=== PATIENT | male | born 1970 | race Caucasian/White ===

== ENCOUNTER 2022-03-24 11:44 | Emergency (ER) | payer OTHER, SELFPAY ==
[2022-03-24 11:58] VITALS: BP 166/104; PULSE 78; RESP 17; TEMP 36.6; O2SAT 99; BMI 32.5
--- NOTE | 2022-03-24 12:01 | DI.RAD.S_ITS ---
PROCEDURE: XR SHOULDER RT MIN 2V INDICATIONS: INJURY TO SHOULDER June TECHNIQUE: 3 views of the shoulder were acquired. COMPARISON: None. FINDINGS: Bones: No fractures or dislocations. No suspicious bony lesions. Visualized ribs appear intact. Soft tissues: No suspicious soft tissue calcifications. IMPRESSION: No definite radiographic abnormality. If pain persists with conservative management consider cross-sectional imaging with MRI or CT. Dictated by: True Spring M.D. on 03/24/2022 at 12:45 Approved by: True Spring M.D. on 03/24/2022 at 12:46
--- NOTE | 2022-03-24 14:03 | PC.NURSE ---
Pt states he went to catch a falling 300 lb motor in June and injured his R neck and shoulder. His neck improved some but is still having pain to the R shoulder and arm. 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
[2022-03-24 14:20] VITALS: BP 166/90; PULSE 77; RESP 16; O2SAT 99
--- NOTE | 2022-03-24 16:00 | ED.UPPEXIN ---
HPI - Extremity Injury (Upper) <SONAM Douglas - Last Filed: 03/24/22 16:08> General Chief Complaint: Extremity Injury, Upper Stated Complaint: Strained right shoulder at work Time Seen by Provider: 03/24/22 13:55 Source: patient Mode of arrival: Ambulatory History of Present Illness HPI narrative: This is a 51-year-old male who presents to the emergency department saying that he injured his right arm and June of 2021 while at work and has had right shoulder pain with external rotation, and abduction movements since. Patient has seen his primary care provider but never filled out L and I paperwork. Today patient completed his L and I paperwork, [place] # [id number]. Patient states that he takes ibuprofen or Tylenol needed for this. Patient states that he is seeking a referral to physical therapy for his right shoulder pain. He has asked his primary care provider for this 4 times and states it has not been done for him. Patient would like to follow-up with orthopedics to have an orthopedist assessment and referral to physical therapy if this is possible. He denies any sensation changes distal to her shoulder, any pain in his elbow or hand. He states his injury occurred when he tried to catch an engine that was falling within outstretched hand, he pulled it with his right arm which corrected from forming, states he had in a year and posterior right shoulder pain for the next week after this happened but then he had ongoing posterior right shoulder pain and would like to have this evaluated. Patient denies any weakness or peripheral edema. Related Data Allergies Allergy/AdvReac Type Severity Reaction Status Date / Time No Known Drug Allergies Allergy Verified 03/24/22 12:00 Review of Systems <SONAM Douglas - Last Filed: 03/24/22 16:08> Review of Systems Narrative: General: denies fever, chills Head/Neck: denies headache, neck pain Eyes: denies visual changes, eye pain Cardio: denies chest pain, palpitations Respiratory: denies shortness of breath, cough GI: denies abdominal pain, nausea, vomiting, or diarrhea : denies dysuria, hematuria MSK: Endorses right shoulder pain which is worse with abduction and external rotation my denies any muscle weakness or sensation changes Skin: denies rash, itching Neuro: denies numbness, tingling Patient History <SONAM Douglas - Last Filed: 03/24/22 16:08> Social History Smoking Status: Never smoker Smoking Status: Never smoker alcohol intake frequency: a few times a week Substance Use Type: does not use Exam <SONAM Douglas - Last Filed: 03/24/22 16:08> Narrative Exam Narrative: Independently reviewed vitals signs and nursing notes. General: cooperative, comfortable, in no acute distress, well developed and well groomed Head: atraumatic, symmetrical facial expressions Neck: supple, atraumatic, ROM intact without pain Eyes: pupils equal round and reactive, EOMI, conjunctiva normal Nose: nares patent, no rhinorrhea Mouth/Throat: moist mucus membranes Cardiovascular: regular rate and rhythm, no peripheral edema, warm extremities Respiratory: normal effort, able to speak in complete sentences, no audible wheezing, stridor, or rales. No retractions or tachypnea. MSK: moves all extremities, ambulatory w/steady gait, neurovascularly intact, no weakness, pain is worse with external rotation against resistance and abduction. Patient states it is tolerable, denies needing any medication for at, radial pulse 2 +, cap refill less than 2 seconds Skin: brisk capillary refill, no rash, no erythema Neuro: normal speech and cognition, A&O x3, normal tone Psych: mental status is grossly normal, congruent mood, normal affect, pleasant and cooperative Initial Vital Signs Initial Vital Signs: Vital Signs Temperature 97.9 F 03/24/22 11:58 Pulse Rate 78 03/24/22 11:58 Respiratory Rate 17 03/24/22 11:58 Blood Pressure 166/104 H 03/24/22 11:58 Pulse Oximetry 99 03/24/22 11:58 <Nicolasa Leavitt DO - Last Filed: 03/25/22 07:16> Initial Vital Signs Initial Vital Signs: Vital Signs Temperature 97.9 F 03/24/22 11:58 Pulse Rate 78 03/24/22 11:58 Respiratory Rate 17 03/24/22 11:58 Blood Pressure 166/104 H 03/24/22 11:58 Pulse Oximetry 99 03/24/22 11:58 Course <SONAM Douglas - Last Filed: 03/24/22 16:08> Orders Ordered: ED Orders 03/24/22 12:01 XR shoulder RT min 2V Stat Vital Signs Vital signs: Vital Signs - 8 hr 03/24/22 11:58 03/24/22 14:20 Temperature 97.9 F Pulse Rate 78 77 Respiratory Rate 17 16 Blood Pressure 166/104 H 166/90 H Pulse Oximetry 99 99 <Nicolasa Leavitt DO - Last Filed: 03/25/22 07:16> Orders Ordered: ED Orders 03/24/22 12:01 XR shoulder RT min 2V Stat Vital Signs Vital signs: Vital Signs - 8 hr 03/24/22 11:58 03/24/22 14:20 Temperature 97.9 F Pulse Rate 78 77 Respiratory Rate 17 16 Blood Pressure 166/104 H 166/90 H Pulse Oximetry 99 99 MDM - Extremity Injury (Upper) <Radha Whitaker, [facility] - Last Filed: 03/24/22 16:08> Imaging Data Extremity x-ray #1: Radiologist's Impression: PROCEDURE:? XR SHOULDER RT MIN 2V ? INDICATIONS:? INJURY TO SHOULDER June ? TECHNIQUE:? 3 views of the shoulder were acquired.? ? COMPARISON:? None. ? FINDINGS:? ? Bones:? No fractures or dislocations.? No suspicious bony lesions.? Visualized ribs appear intact.? ? Soft tissues:? No suspicious soft tissue calcifications.? ? IMPRESSION:? No definite radiographic abnormality.? If pain persists with conservative management consider cross-sectional imaging with MRI or CT. ? ? ? Dictated by: True Spring M.D. on 03/24/2022 at 12:45 ? ? Approved by: True Spring M.D. on 03/24/2022 at 12:46 ? [facility] Narrative Medical decision making narrative: This is a 51-year-old male presents to the emergency department for a right shoulder injury which occurred at work in June of 2021. He has had persistent pain since this occurred, he is right-hand dominant, states that he has pain with most movements of his right shoulder, he is seeking a referral to physical therapy, states he has reached out to his primary care provider multiple times without a referral. [id number]. X-ray of his right shoulder shows no definite radiographic abnormality, no fracture, dislocation, or suspicious bony lesion. Patient is encouraged to schedule an appointment [facility] for an evaluation, he can get a physical therapy referral through there, and in order for advanced imaging necessary. He was encouraged to call his primary care provider as well to check about the status of his referral. Patient declined the need for any pain medication at this time. He was given 3 physical therapy options in town to call and make an appointment at if he chooses to. Patient is appropriate and amenable to discharge home. Vital signs are stable on repeat examination is unremarkable. Patient has been informed of results. Patient has been given strict return to ER precautions for any new or worsening symptoms. Patient understands to follow up closely with outpatient providers as instructed. Patient understands plan and agrees to discharge home. All questions and concerns answered at this time. Discharge Plan Departure Patient Disposition: Home Clinical Impression: Work related injury Injury of shoulder Qualifiers: Encounter type: initial encounter Laterality: right Qualified Code(s): S49.91XA - Unspecified injury of right shoulder and upper arm, initial encounter Instructions: Shoulder Tendinopathy, DI for Shoulder Labral Tear, DI for Shoulder Pain Activity Restrictions/Additional Instructions: *You have been diagnosed with a work related injury and a right shoulder injury concerning for labral tear and/or rotator cuff tear. Please call your primary care provider and ask for a referral to one of the physical therapy locations of your choice or of his choice so that you can move forward. [place] [id number]. You can call 1 of the attached places below and see if they will see you under this claim number. Otherwise please call [facility] and make an appointment for an evaluation. They will help with referrals to physical therapy and/or advanced imaging if you need these things. I will forward this chart to your primary care provider. Right shoulder x-ray does not show any fracture, dislocation, or suspicious bony lesion. Please follow-up with your primary care provider, and go to [facility] as you are able. Thank you for trusting us with your care, please return to the emergency department for any other needs, or go to the walk-in clinic if you need a referral to physical therapy. Wish you the best. *What to do: *Please continue to take your regular medications as directed. [ ] New medication prescriptions sent to your pharmacy: [ ] [ ] New medication written as a paper prescription [x ] No new medications given *Please follow up with your primary care provider in 2-3 days, call for an appointment. Let them know you were seen in the Emergency Department and that we asked that you be seen for follow-up. We will electronically transmit a record of today's note if your PCP is in our system *If you do not have a primary care provider please contact [phone] to establish care with one of the [facility] primary care providers. *Return to Emergency Department if you should have any new, worsening or concerning symptoms, such as [fever greater than 101F, chills, worsening pain, persistent vomiting or other bothersome symptoms] Referrals: [facility] [place] [Provider Group] - 7-10 days [facility] [Provider Group] [facility] [Outside] [facility] [Outside] Jeet Barrera PA-C [Primary Care Provider] - <Nicolasa Leavitt DO - Last Filed: 03/25/22 07:16> Cosign ED Attending Linda Attestation: I was immediately available in the department for consultation. Documentation has been reviewed. I agree with assessment and plan.
== END 2022-03-24 14:20 | disposition home or self-care (01) ==
PROVIDERS: Emergency Provider Nurse Practitioner Critical Care Medicine; PCP Student in an Organized Health Care Education/Training Program
DX: S49.91XA Unspecified injury of right shoulder and upper arm, initial encounter (principal); M25.511 Pain in right shoulder; Y99.0 Civilian activity done for income or pay
CPT/HCPCS: 73030; 99281; 99283

== ENCOUNTER → 2022-06-19 15:27 | Outpatient (CLI) | payer OTHER, SELFPAY ==
--- NOTE | 2022-06-19 | DI.MRI.S_ITS ---
PROCEDURE: MR SHOULDER RT WO CON INDICATIONS: STRAIN OF MUSCLE/TENDON RIGHT SHOULDER TECHNIQUE: Noncontrast oblique coronal T2 fast spin echo with fat saturation, oblique sagittal T1 spin echo and T2 fast spin echo with fat saturation, axial T1 spin echo and T2 fast spin echo with fat saturation through the shoulder. COMPARISON: [facility], CR, XR SHOULDER RT MIN 2V, 03/24/2022, 11:58. FINDINGS: Image quality: Excellent. Rotator cuff: There is full-thickness tearing of the supraspinatus tendon at the anterior footprint measuring 0.6 cm and anterior-posterior dimension with mild proximal tendon retraction measuring 0.7 cm. Moderate infraspinatus tendinosis is seen. The teres minor tendon is intact. There is high-grade partial articular sided tearing of the subscapularis tendon at the superior insertion. There is delamination and proximal retraction of articular sided fibers measuring up to 2.2 cm. There is no significant rotator cuff muscle atrophy. Bones and bursae: No acute trabecular bone injury or fracture. Chronic traction cystic changes are seen at the posterosuperior humeral head and the greater tuberosity near the rotator cuff tendon insertions. There is mild degenerative spurring in the glenoid rim and inferior humeral head. Moderate degenerative changes are seen at the acromioclavicular joint with subchondral edema in mild subchondral cystic changes as well as formation of small marginal osteophytes. No new noted os acromiale is noted. There is a small amount of subacromial/subdeltoid bursal fluid, which likely communicates with the glenohumeral joint space. Capsule and soft tissues: No displaced labral tear is seen. There is complete tearing and distal retraction of the proximal biceps long head tendon. Partial effacement of the normal fat is seen in the rotator interval. The glenohumeral ligaments are grossly intact. IMPRESSION: 1. Full-thickness tearing of the supraspinatus tendon at the anterior footprint measuring 0.6 cm in anterior-posterior dimension with approximately 0.7 cm of proximal tendon retraction. Moderate supraspinatus and infraspinatus tendinosis. 2. High-grade partial articular sided tearing of the subscapularis tendon at the superior insertion with delamination and proximal retraction of articular sided fibers measuring up to 2.2 cm. 3. Complete tearing and distal retraction of the biceps long head tendon. 4. Moderate acromioclavicular osteoarthrosis and mild glenohumeral osteoarthrosis. 5. Small subacromial/subdeltoid bursal effusion communicates with the glenohumeral joint space. Dictated by: David Owens M.D. on 06/19/2022 at 16:52 Approved by: David Owens M.D. on 06/19/2022 at 16:57
== END ==
PROVIDERS: PCP Student in an Organized Health Care Education/Training Program; Referring Provider Orthopaedic Surgery Foot and Ankle Surgery; Visit Provider Orthopaedic Surgery Foot and Ankle Surgery
DX: S46.011A Strain of muscle(s) and tendon(s) of the rotator cuff of right shoulder, initial encounter (principal); S46.111A Strain of muscle, fascia and tendon of long head of biceps, right arm, initial encounter; M19.011 Primary osteoarthritis, right shoulder; X58.XXXA Exposure to other specified factors, initial encounter
CPT/HCPCS: 73221